=== PATIENT | female | born 1965 | race Caucasian/White ===

== ENCOUNTER → 2020-11-01 | Outpatient (CLI) | payer BC, OTHER | LOC: MAMO 09:08 | DX: Z12.31 Encounter for screening mammogram for malignant neoplasm of breast (principal) | CPT/HCPCS: 77063; 77067 ==

== ENCOUNTER → 2021-11-05 | Outpatient (CLI) | payer SELFPAY | LOC: MAMO 12:20 | DX: C50.319 Malignant neoplasm of lower-inner quadrant of unspecified female breast (principal) | CPT/HCPCS: 77063; 77067 ==